=== PATIENT | female | born 1960 | race Caucasian/White ===

== ENCOUNTER 2018-11-17 20:29 | Outpatient (CLI) | payer BC ==
--- NOTE | 2018-11-17 23:59 | Ultrasound Report ---
Reason: CIRRHOSIS Procedure Date: 11/17/2018 Accession Number: [id number] / [id number] Procedure: US - Abdomen Limited CPT Code: FULL RESULT: EXAM: ABDOMEN ULTRASOUND LIMITED, RUQ EXAM DATE: 11/17/2018 09:56 PM. CLINICAL HISTORY: Cirrhosis. Right upper quadrant pain. COMPARISON: None. TECHNIQUE: Real-time scanning was performed with static images obtained. FINDINGS: Liver: Moderate heterogeneous increased echogenicity. Liver surface nodularity, suggesting cirrhosis. Liver measures 17.3 cm in length. Portal Vein: Patent with hepatopetal flow. Gallbladder: Small stones in the fundus. Borderline wall thickening. Absent Dupree sign. Biliary System: CBD measures 3.4 mm. No intrahepatic or extrahepatic ductal dilatation. Pancreas: Obscured by overlying structures. Right Kidney: Visualized portions of the right kidney are without significant abnormality. Small parenchymal defect versus tiny angiomyolipoma measuring 8 mm. Right kidney measures 10.2 cm in length. Other: None. IMPRESSION: 1. A few stones and sludge. No evidence of cholecystitis. No pathologic biliary dilation. 2. Cirrhotic liver. Concurrent steatosis noted. 3. Findings of portal hypertension with a recanalized paraumbilical vein. RADIA
== END 2018-11-17 20:30 | disposition home or self-care (01) ==
LOC: DI 20:29
PROVIDERS: ATTEND Internal Medicine
DX: K70.30 Alcoholic cirrhosis of liver without ascites (principal); K76.0 Fatty (change of) liver, not elsewhere classified; K76.6 Portal hypertension; K80.20 Calculus of gallbladder without cholecystitis without obstruction
CPT/HCPCS: 76705

== ENCOUNTER 2019-01-19 12:03 | Outpatient (CLI) | payer BC ==
--- NOTE | 2019-01-19 13:32 | Mammography Report ---
Reason: ABNORMAL MAMMOGRAM Procedure Date: 01/19/2019 Accession Number: [id number] / [id number] Procedure: NADIA - Diagnostic Dig Bilat CPT Code: FULL RESULT: EXAM: Diagnostic Dig Bilat DATE: 01/19/2019 1:15 PM CLINICAL HISTORY: Diagnostic examination. Follow-up of probably benign the left breast calcifications in the left medial retroareolar breast. TECHNIQUE: (B) - Bilateral CC and MLO views were obtained. Left spot magnified CC views and left spot magnified ML views as well as a left ML view were also obtained. COMPARISON: 01/31/2018 through 03/22/2017. PARENCHYMAL PATTERN: (VD) - The breast(s) demonstrate(s) extremely dense parenchyma, limiting the sensitivity of mammography. FINDINGS: The grouping of calcifications in the medial retroareolar left breast are stable dating back to February 2017, probably benign. There are no suspicious masses, calcifications, or areas of distortion. IMPRESSION: Probably Benign. BI-RADS category 3. RECOMMENDATION: (12MOS) - Recommend 12 month follow-up exam. BI-RADS CATEGORY: (3) - Probably Benign. STANDARD QUALIFYING STATEMENTS: 1. This examination was not reviewed with the aid of Computer-Aided Detection (CAD). 2. A negative or benign imaging report should not preclude biopsy if clinically suspicious findings are present. 3. Dense breasts may obscure an underlying neoplasm. 4. This examination was reviewed with the aid of 3D breast imaging (tomosynthesis).
== END 2019-01-19 12:04 | disposition home or self-care (01) ==
LOC: DI 12:03
PROVIDERS: ATTEND Internal Medicine
DX: R92.8 Other abnormal and inconclusive findings on diagnostic imaging of breast (principal)
CPT/HCPCS: 77066

== ENCOUNTER 2020-06-12 13:38 | Outpatient (CLI) | payer BC ==
--- NOTE | 2020-06-13 16:00 | Mammography Report ---
BILATERAL DIGITAL DIAGNOSTIC MAMMOGRAM 3D/2D: 06/12/2020 CLINICAL: Patient returns for magnification views of microcalcifications in the left breast. Comparison is made to exams dated: 01/19/2019 mammogram - [facility] and 01/31/2018 m ammogram - [facility]. The tissue of both breasts is heterogeneously dense. This may l ower the sensitivity of mammography. There are stable benign grouped fine calcifications in the left breast central to the nipple in the r etroareolar region. No other significant masses, calcifications, or other findings are seen in either breast. IMPRESSION: BENIGN There is no mammographic evidence of malignancy. A 1 year screening mammogram is recommended. This exam was interpreted at Station ID: [id number]. NOTE: For mammograms, a report in lay terms will be sent to the patient. Approximately 15% of breast malignancies will not be visualized mammographically. In the management of a palpable breast mass, a negative mammogram must not discourage biopsy of a clinically suspicious lesion. Electronically Signed By: Matt Edward M.D. ddp/:06/12/2020 14:44:32 ACR BI-RADS Category 2: Benign Finding(s) 3342F PARENCHYMAL PATTERN: (D) - The breast(s) demonstrate(s) heterogeneously dense fibroglandular juvenal echeverria. BI-RADS CATEGORY: (2) - 2 RECOMMENDATION: (ANNUAL) - Recommend routine annual screening mammography. [id number] 1 year screening LATERALITY: (B)
== END 2020-06-12 13:39 | disposition home or self-care (01) ==
LOC: DI 13:38
PROVIDERS: ATTEND Internal Medicine
DX: R92.8 Other abnormal and inconclusive findings on diagnostic imaging of breast (principal)
CPT/HCPCS: 77066

== ENCOUNTER 2020-09-12 10:43 | Outpatient (CLI) | payer BC ==
[2020-09-12 11:07] LABS: BASOPHILS % (AUTO) 0.7 %; EOSINOPHILS # (AUTO) 0.1 10^3/uL (0.0-0.7); EOSINOPHILS % (AUTO) 1.7 %; HGB - HEMOGLOBIN 14.3 g/dL (12.0-16.0); LYMPHOCYTES # (AUTO) 1.3 10^3/uL (1.5-3.5); LYMPHOCYTES % (AUTO) 27.7 %; MEAN CORPUSCULAR HGB CONC 32.9 g/dL (32.0-36.0); MEAN PLATELET VOLUME 11.2 fL (7.9-10.8); MONOCYTES # (AUTO) 0.3 10^3/uL (0.0-1.0); MONOCYTES % (AUTO) 6.1 %; NEUTROPHILS # (AUTO) 2.9 10^3/uL (1.5-6.6); NEUTROPHILS % (AUTO) 63.6 %; PLT - PLATELET COUNT 122 10^3/uL (130-450); RED BLOOD COUNT 4.93 10^6/uL (4.20-5.40); RED CELL DISTRIBUTION WIDTH 13.4 % (12.0-15.0); WHITE BLOOD COUNT 4.6 x10^3/uL (4.8-10.8)
[2020-09-12 11:19] LABS: ALBUMIN 4.4 g/dL (3.2-5.5); ALBUMIN/GLOBULIN RATIO 1.2 (1.0-2.2); BILIRUBIN,TOTAL 1.1 mg/dL (0.2-1.0); CALCIUM 9.9 mg/dL (8.5-10.3); CREATININE 1.5 mg/dL (0.4-1.0); PHOSPHORUS 3.2 mg/dL (2.5-4.6)
[2020-09-12 11:54] LABS: CREATININE,URINE 97.9 mg/dL
[2020-09-12 11:55] LABS: MICROALBUMIN,URINE < 0.2 mg/dL (0-300.0)
[2020-09-12 12:28] LABS: BILIRUBIN,URINE NEGATIVE (NEGATIVE); GLUCOSE, URINE (UA) NEGATIVE (NEGATIVE); KETONES,URINE (UA) NEGATIVE (NEGATIVE); LEUKOCYTE ESTERASE, URINE NEGATIVE (NEGATIVE); NITRITE,URINE NEGATIVE (NEGATIVE); OCCULT BLOOD,URINE NEGATIVE (NEGATIVE); PROTEIN,URINE NEGATIVE (NEGATIVE); UROBILINOGEN,URINE 0.2 (NORMAL) E.U./dL (NORMAL)
[2020-09-12 12:42] LABS: BACTERIA,URINE Few /HPF (None Seen); CLARITY,URINE CLEAR (CLEAR); RBC,URINE 0-5 /HPF (0-5); SQUAMOUS EPITHELIAL CELL,UR FEW Squamous (<= Few)
== END 2020-09-12 10:44 | disposition home or self-care (01) ==
LOC: LAB 10:43
PROVIDERS: ATTEND Specialist
DX: N18.4 Chronic kidney disease, stage 4 (severe) (principal); R80.9 Proteinuria, unspecified; E55.9 Vitamin D deficiency, unspecified
CPT/HCPCS: 36415; 80053; 81001; 82043; 82306; 82570; 83970; 84100; 85025

== ENCOUNTER 2020-10-31 14:10 | Outpatient (CLI) | payer BC ==
--- NOTE | 2020-10-31 14:34 | XRAY Report ---
PROCEDURE: Foot 3 View RT INDICATIONS: RIGHT FOOT PAIN SWELLING TECHNIQUE: 3 views of the foot were acquired. COMPARISON: None. FINDINGS: Bones: No fractures or dislocations. No suspicious bony lesions. Incidental os peroneum. Scattered subchondral sclerosis and spurring. Marginal lucencies projected first MTP joint. Soft tissue swelling in region of the first MTP joint IMPRESSION: Marginal lucencies of the first MTP joint raising possibility of erosions, possibly gout. Please haritha elate clinically with laboratory data. Diffuse osteoarthritis Reviewed by: Wong Sims MD on 10/31/2020 2:33 PM PST Approved by: Wong Sims MD on 10/31/2020 2:33 PM PST Station ID: [id number]
== END 2020-10-31 14:11 | disposition home or self-care (01) ==
LOC: DI.S 14:10
PROVIDERS: ATTEND Internal Medicine
DX: M19.071 Primary osteoarthritis, right ankle and foot (principal); R93.6 Abnormal findings on diagnostic imaging of limbs

== ENCOUNTER 2022-08-06 07:56 | Outpatient (CLI) | payer BC ==
--- NOTE | 2022-08-09 12:57 | Mammography Report ---
BILATERAL DIGITAL SCREENING MAMMOGRAM 3D/2D: 08/06/2022 CLINICAL: Routine screening. Comparison is made to exams dated: 06/12/2020 mammogram, 01/19/2019 mammogram - [facility], and 01/31/2018 mammogram - [facility]. Both breasts are heterogeneously dense, which may obscure small masses (category c / 51-75% glandular tissue). No significant masses, calcifications, or other findings are seen in either breast. There has been no significant interval change. IMPRESSION: NEGATIVE There is no mammographic evidence of malignancy. A 1 year screening mammogram is recommended. Based on the Tyrer Cuzick model (a risk assessment model) the patients lifetime risk is 14.0% and he r 10 year risk is 6.4%. According to the ACR, ACS, and NCCN guidelines, an annual breast MRI exam rogelio ng with mammogram is recommended if the patients lifetime risk is 20% or greater. This exam was interpreted at Station ID: [id number]. NOTE: For mammograms, a report in lay terms will be sent to the patient. Approximately 15% of breast malignancies will not be visualized mammographically. In the management of a palpable breast mass, a negative mammogram must not discourage biopsy of a clinically suspicious lesion. Electronically Signed By: Lew adkins/sergio:08/06/2022 16:51:01 ACR BI-RADS Category 1: Negative 3341F PARENCHYMAL PATTERN: (D) - The breast(s) demonstrate(s) heterogeneously dense fibroglandular parkristiany ma. BI-RADS CATEGORY: (1) - 1 RECOMMENDATION: (ANNUAL) - Recommend routine annual screening mammography. [id number] 1 year screening LATERALITY: (B)
== END 2022-08-06 07:57 | disposition home or self-care (01) ==
LOC: DI 07:56
PROVIDERS: ATTEND Internal Medicine
DX: Z12.31 Encounter for screening mammogram for malignant neoplasm of breast (principal)

== ENCOUNTER 2023-08-20 15:19 | Outpatient (CLI) | payer BC ==
--- NOTE | 2023-08-20 19:19 | Ultrasound Report ---
PROCEDURE: Pelvic w/Transvaginal INDICATIONS: POST MENOPAUSAL BLEEDING TECHNIQUE: Real-time scanning was performed of the pelvic organs, with image documentation. Additional endovagi nal scanning was necessary due to incomplete visualization of the adnexal and endometrial structures by transabdominal scanning. COMPARISON: None. FINDINGS: Uterus: Uterus is anteverted and normal in size at 6.9 x 2.2 x 3.6 cm. The myometrium is heterogene ous. The endometrium measures 3 mm in combined thickness. Ovaries: Ovaries not visualized due to atrophy and bowel gas. Other: No pathologic free abdominal or pelvic fluid. IMPRESSION: Image and measures 3 mm. Post menopausal bleeding could be explained by atrophy. Reviewed by: Zain Arriaga MD on 08/20/2023 7:18 PM PST Approved by: Zain Arriaga MD on 08/20/2023 7:18 PM PST Station ID: [id number]
== END 2023-08-20 15:20 | disposition home or self-care (01) ==
LOC: DI 15:19
PROVIDERS: ATTEND Obstetrics & Gynecology
DX: N95.0 Postmenopausal bleeding (principal); N83.312 Acquired atrophy of left ovary; N83.311 Acquired atrophy of right ovary